=== PATIENT | female | born 1950 | race Caucasian/White ===

== ENCOUNTER → 2017-07-05 | Outpatient (CLI) | payer MEDICARE, BC | LOC: KOH-I 15:03 | DX: M54.2 Cervicalgia (principal); M54.6 Pain in thoracic spine; M54.5 Low back pain; R05 Cough; M47.892 Other spondylosis, cervical region; M81.0 Age-related osteoporosis without current pathological fracture | CPT/HCPCS: 71020; 72050; 72070; 72110 ==

== ENCOUNTER → 2020-12-23 | Outpatient (CLI) | payer OTHER, MEDICARE ==
[~2020-12-23] MED LIST: CYCLOBENZAPRINE10 MG PO; HYDROCODON-ACE1 EAC4 PO; OMNICEF 300 MG300 MG PO; PREDNISONE 50 M50 MG PO; VENTOLIN HFA 66.7 GM INH; ZITHROMAX250 MG PO
== END ==
LOC: KOH-I 12:57
DX: M54.2 Cervicalgia (principal); M54.9 Dorsalgia, unspecified
CPT/HCPCS: 72050; 72070; 72100

== ENCOUNTER → 2020-12-31 | Outpatient (CLI) | payer MEDICARE, BC | LOC: KOH-I 11:15 | DX: M54.5 Low back pain (principal); M48.07 Spinal stenosis, lumbosacral region; M51.37 Other intervertebral disc degeneration, lumbosacral region; M51.36 Other intervertebral disc degeneration, lumbar region; M48.061 Spinal stenosis, lumbar region without neurogenic claudication | CPT/HCPCS: 72148 ==

== ENCOUNTER → 2021-07-27 | Outpatient (CLI) | payer MEDICARE | LOC: KOH-I 11:04 | DX: M54.9 Dorsalgia, unspecified (principal); M41.82 Other forms of scoliosis, cervical region; M47.816 Spondylosis without myelopathy or radiculopathy, lumbar region; M47.812 Spondylosis without myelopathy or radiculopathy, cervical region; M47.814 Spondylosis without myelopathy or radiculopathy, thoracic region; M50.31 Other cervical disc degeneration, high cervical region; M51.36 Other intervertebral disc degeneration, lumbar region | CPT/HCPCS: 72050; 72070; 72110 ==

== ENCOUNTER → 2021-11-19 | Outpatient (CLI) | payer MEDICARE, BC | LOC: KOH-I 14:52 | DX: R05.9 Cough, unspecified (principal); M25.562 Pain in left knee; M17.12 Unilateral primary osteoarthritis, left knee | CPT/HCPCS: 71046; 73562 ==

== ENCOUNTER 2022-04-17 01:18 | Emergency (ER) | payer MEDICARE, BC ==
[~2022-04-17 01:18] MED LIST changes: +CATAPRES 0.1MG0.1 MG PO
[2022-04-17 02:02] LABS: HEMOGLOBIN 13.6 gm/dl (12.3-15.3); RED BLOOD COUNT 4.4 M/UL (4.00-5.10); WHITE BLOOD COUNT 10.4 K/UL (4.5-11.0)
[2022-04-17 02:10] LABS: BUN/CREATININE RATIO 22 (0-10)
[2022-04-17] MEDS ORDERED: ENDOCET 5-3251 EACH PO (04:08)
[2022-04-17] MEDS ORDERED: FLOMAX0.4 MG PO (04:12)
== END 2022-04-17 05:11 | disposition home or self-care (01) ==
LOC: ER1 01:18
PROVIDERS: Emergency Medicine
DX: N13.2 Hydronephrosis with renal and ureteral calculous obstruction (principal); F17.210 Nicotine dependence, cigarettes, uncomplicated; I10 Essential (primary) hypertension; Z90.710 Acquired absence of both cervix and uterus
CPT/HCPCS: 80053; 81001; 83605; 85025; 87086; 96374; 96375; 99284; J1170; J1885; J2270; J2405; Q9967

== ENCOUNTER 2022-04-24 14:36 | Emergency (ER) | payer MEDICARE, BC ==
[~2022-04-24 14:36] MED LIST changes: +ENDOCET 5-3251 EACH PO; +FLOMAX0.4 MG PO
[2022-04-24 15:24] LABS: RED BLOOD COUNT 4.53 M/UL (4.00-5.10); WHITE BLOOD COUNT 11.3 K/UL (4.5-11.0)
[2022-04-24 15:49] LABS: BUN/CREATININE RATIO 30 (0-10)
[2022-04-24] MEDS ORDERED: HYDROCODON-ACE1 EAC4 PO ×2 (16:58→17:48)
== END 2022-04-24 17:44 | disposition home or self-care (01) ==
LOC: ER1 14:36
PROVIDERS: Emergency Medicine
DX: N20.1 Calculus of ureter (principal); I10 Essential (primary) hypertension; F17.200 Nicotine dependence, unspecified, uncomplicated
CPT/HCPCS: 80053; 81001; 85025; 96374; 96375; 99284; J1885; J2270; J2405